=== PATIENT | female | born 1995 | race Caucasian/White ===

== ENCOUNTER 2019-08-26 10:06 | Emergency (ER) | payer OTHER ==
[~2019-08-26] VITALS: Ht 165.1 cm; Wt 54.0 kg
[2019-08-26] MEDS ORDERED: SODIUM CHLORIDE 0.9% 1,000 ML IV ONE (10:25)
[2019-08-26] MEDS ORDERED: ONDANSETRON ODT 4 MG PO ONE (10:30)
[2019-08-26] MEDS ORDERED: SODIUM CHLORIDE 0.9% 1,000ML IVBOLUS ONE (10:30)
--- NOTE | 2019-08-26 10:36 | NUR ---
Pt to 26 from [facility]. heroin od- found by julio on floor of bathroom. EMS found pt in resp arrest. Given narcan IN, immediately awoke, was combative & confused. Arrived in 4-point restraints but able to transfer to bed w/out continuation of restraints. Pt placed on supplemental oxygen @ 3L to maintain sats >94%. cardiac, NIBP & SPO2 monitors IP. Pt tearful but cooperative. Curtain open, lights on for observation.
[2019-08-26] MEDS ORDERED: NALOXONE 0.4 MG/ML, 1ML ONE (10:41)
--- NOTE | 2019-08-26 10:57 | NUR ---
REPORT FROM SHAYNA VILLARREAL.
--- NOTE | 2019-08-26 11:07 | NUR ---
labs hemolyzed. pt refused redraw. as
--- NOTE | 2019-08-26 11:31 | NUR ---
resting in room, cooperative. call mejias in reach. vss. as
--- NOTE | 2019-08-26 11:59 | NUR ---
pt remains drowsy. on 3lnc. as
--- NOTE | 2019-08-26 12:41 | NUR ---
pt nodding off. room air sat 90-91. davis notified. pt given snacks, put back on 1.5 lnc. call mejias in reach. as
--- NOTE | 2019-08-26 13:17 | NUR ---
pt pulled out iv. as
[2019-08-26 13:50] VITALS: BP 122/72
--- NOTE | 2019-08-26 14:09 | NUR ---
pt resting in bed. nods off quickly. on 1.5 l nc. does not keep eyes open very long. as
== END 2019-08-26 16:14 | disposition home or self-care (01) ==
LOC: ED 11:23
DX: T40.2X1A Poisoning by other opioids, accidental (unintentional), initial encounter (principal); F11.10 Opioid abuse, uncomplicated; R00.0 Tachycardia, unspecified; E86.0 Dehydration; R06.02 Shortness of breath; Y92.89 Other specified places as the place of occurrence of the external cause
CPT/HCPCS: 71045; 93005; 99284